=== PATIENT | female | born 1945 | race Caucasian/White ===

== ENCOUNTER 2018-03-03 05:40 | Day surgery (SDC) | payer MEDICARE, OTHER ==
[2018-03-03] VITALS (8 sets, daily range): BP systolic 123–152; BP diastolic 63–82
[~2018-03-03] VITALS: Ht 170.2 cm; Wt 81.6 kg
[2018-03-03] MEDS: Ciprofloxacin Opth Soln 2.5ml RIGHT EYE SCH ×4 (06:15→06:44)
[2018-03-03] MEDS: Akten 3.5% 1ml Btl RIGHT EYE SCH ×4 (06:15→06:44)
[2018-03-03] MEDS: Cyclopentolate 1% Opth Sol 2ml RIGHT EYE SCH ×4 (06:15→06:44)
[2018-03-03] MEDS: Phenylephrine 2.5% Op 2ml Soln RIGHT EYE SCH ×4 (06:16→06:44)
[2018-03-03] MEDS: Diclofenac Sod 0.1% Op Soln RIGHT EYE SCH ×4 (06:16→06:44)
[2018-03-03] MEDS ORDERED: ASPIR 8181 MG ORAL (06:49)
[2018-03-03] MEDS ORDERED: VITAMIN B122500 MCG PO (06:49)
[2018-03-03] MEDS ORDERED: AMLODIPINE BESYL5 MG ORAL (06:49)
[2018-03-03] MEDS ORDERED: MULTI-VITAMIN1 EACH PO (06:49)
[2018-03-03] MEDS ORDERED: HYDROCHLOROTH12.5 MG ORAL (06:49)
[2018-03-03] MEDS ORDERED: LISINOPRIL40 MG ORAL (06:49)
[2018-03-03] MEDS ORDERED: VITAMIN E400 UNI5 PO (06:49)
[2018-03-03] MEDS ORDERED: Lidocaine 1% MPF 10mg/ml 5ml ONE (07:01)
[2018-03-03] MEDS ORDERED: Pred Forte 1% Opth Susp 1ml ONE (07:01)
[2018-03-03] MEDS ORDERED: Carbachol 0.01% Op Soln 1.5ml vial ONE (07:01)
[2018-03-03] MEDS ORDERED: EPINEPHrine 1mg/1ml Amp ONE ×2 (07:01→07:23)
[2018-03-03] MEDS ORDERED: BSS 15ml BTL ONE ×2 (07:02→07:23)
[2018-03-03] MEDS ORDERED: Sodium Hyaluronate 14 mg/ml 0.85ml ONE (07:02)
[2018-03-03] MEDS ORDERED: Tetracaine 0.5% Opth 4ml Soln ONE (07:02)
[2018-03-03] MEDS ORDERED: BSS 500ml btl ONE (07:02)
[2018-03-03] MEDS ORDERED: Dexamethasone 4mg/ml vial ONE (07:02)
[2018-03-03] MEDS ORDERED: Lidocaine 1% 10mg/ml/Epi 0.005mg/ml 30ml vial INJ ONE (07:04)
[2018-03-03] MEDS ORDERED: Povidone-Iodine 5% opth solution ONE (07:04)
--- NOTE | 2018-03-03 07:05 | Pre-Procedure Note/Attestation ---
Pre-Procedure Note/Attestation Complete Prior to Procedure Planned Procedure: right Procedure Narrative: Cataract extraction with IOL Indications for Procedure Pre-Operative Diagnosis: Cataract Attestation I attest that I discussed the nature of the procedure; its benefits; risks and complications; and alternatives (and the risks and benefits of such alternatives ), prior to the procedure, with the patient (or the patient's legal bottling equipment sales representative). I attest that, if there was a reasonable possibility of needing a blood transfusion, the patient (or the patient's legal bottling equipment sales representative) was given the [facility] standardized written summary, pursuant to the [place] Blood Safety Act ([place] Health and Safety Code # 1645, as amended). I attest that I re-evaluated the patient just prior to the surgery and that there has been no change in the patient's H&P, except as documented below: Gagandeep Noyola MD Mar 03, 2018 07:05
[2018-03-03] MEDS ORDERED: fentaNYL 100 mcg/2 mL IV ONE (07:21)
[2018-03-03] MEDS ORDERED: Midazolam 2mg/2ml Inj ONE (07:21)
[2018-03-03] MEDS ORDERED: Propofol 200mg/20ml IV ONE (07:21)
[2018-03-03] MEDS ORDERED: Lidocaine 2% 20mg/ml/Epi 0.005mg/ml 20ml vial ONE (07:23)
[2018-03-03] MEDS ORDERED: Lidocaine 4% Amp ONE (07:23)
[2018-03-03] MEDS ORDERED: Sterile Water Irrig 1000ml IRRIG ONE (07:30)
[2018-03-03] MEDS ORDERED: NS Irrig 1000ml ONE (07:30)
[2018-03-03] MEDS ORDERED: LR 1000ml ONE (07:30)
--- NOTE | 2018-03-03 07:45 | Anethesia Preoperative Eval ---
Anesthesia Pre-op PMH/ROS General Date of Evaluation: Mar 03, 2018 Time of Evaluation: 07:20 Anesthesiologist: Shruti Graf CRNA ASA Score: ASA 2 Mallampati Score Class I : Soft palate, uvula, fauces, pillars visible Class II: Soft palate, uvula, fauces visible Class III: Soft palate, base of uvula visible Class IV: Only hard plate visible Mallampati Classification: Class II Surgeon: Jazmín Diagnosis: RGHT eye cataract Surgical Procedure: RIGHT eye cataract extraction IOL Anesthesia History: none Family History: no anesthesia problems Allergies: Coded Allergies: No Known Allergies (Unverified , 03/01/18) Medications: see eMAR Patient NPO?: Yes NPO Date: Mar 03, 2018 NPO Time: 00:00 Past Medical History Cardiovascular: Reports: HTN; Denies: CAD, ND, valve dz, arrhythmia, other Pulmonary: Denies: asthma, COPD, JOHN PAUL, other Gastrointestinal/Genitourinary: Denies: GERD, CRI, ESRD, other Neurologic/Psychiatric: Denies: dementia, CVA, depression/anxiety, TIA, other Endocrine: Denies: DM, hypothyroidism, steroids, other HEENT: Reports: cataract (L), cataract (R), ALTURAS (L), ALTURAS (R); Denies: glaucoma, other Hematology/Immune: Denies: anemia, DVT, bleeding disorder, other Musculoskeletal/Integumentary: Denies: OA, RA, DJD, DDD, edema, other Other: obesity, other - squamous cell CA nose PMH Narrative: as above PSxH Narrative: ADRIAN, ear surgery Anesthesia Pre-op Phys. Exam Physician Exam Last Vital Signs Date Time Temp Pulse Resp B/P (MAP) Pulse Ox O2 Delivery O2 Flow Rate FiO2 03/03/18 06:22 98.6 77 20 125/66 96 Room Air Constitutional: NAD Neurologic: CN 2-12 intact Cardiovascular: RRR Respiratory: CTA Airway Exam Mallampati Score: Class II MO: full Neck: no limitations TMD: > 3 FB ROM: full Dentures: no upper, no lower Anesthesia Pre-op A/P Studies Pre-op Studies: EKG - SR with LEFT fascicular block Risk Assessment & Plan Assessment: ASA 2, ok to proceed Plan: MAC Status Change Before Surgery: No Pre-Antibiotics Given Within 1 Hr of Incision: No Ebonie Grafy BUSINESS INFORMATION CONSULTANT Mar 03, 2018 07:45
--- NOTE | 2018-03-03 08:17 | Operative Note - PDOC ---
Operative Note Operative Note Date of Operation/Procedure: Mar 03, 2018 Chief Complaint: Poor vision Pre-op Diagnosis: Cataract Procedure: Cataract extraction with lens implant, right eye Post-op Diagnosis: Cataract Post-op Diagnosis: same as pre-op Surgeon: Gagandeep Noyola Leather Toggler: None Additional Surgeons: None Anesthesiologist: Lesia Anesthesia: MAC Specimen: none Complications: none Condition: stable Fluids: None Estimated Blood Loss: none Drains: none Packing: None Implant(s) used?: Yes Indications for Procedure Poor vision Description of Procedure See operative report Gagandeep Noyola MD Mar 03, 2018 08:17
--- NOTE | 2018-03-03 08:58 | Immediate Post-Op Evaluation ---
Immediate Post-Op Evalulation Immediate Post-Op Evalulation Procedure: RIGHT cataract extraction with IOL implant Date of Evaluation: Mar 03, 2018 Time of Evaluation: 08:11 IV Fluids: 300 ml LR Blood Pressure Systolic: 147 Blood Pressure Diastolic: 82 Pulse Rate: 81 Respiratory Rate: 14 O2 Sat by Pulse Oximetry: 99 Temperature (Fahrenheit): 97.0 Pain Score (1-10): 0 Nausea: No Vomiting: No Complications none Patient Status: awake, reacts, patent Hydration Status: adequate Given Within 1 Hr of Incision: Shruti Madrid CRNA Mar 03, 2018 08:58
--- NOTE | 2018-03-03 08:59 | 48 Hour Post Anesthesia Eval ---
Post Anesthesia Evaluation Procedure: RIGHT cataract extraction with IOL implant Date of Evaluation: Mar 03, 2018 Time of Evaluation: 08:45 Blood Pressure Systolic: 133 0: 76 Pulse Rate: 78 Respiratory Rate: 16 Temperature (Fahrenheit): 97.8 O2 Sat by Pulse Oximetry: 98 Airway: patent Nausea: No Vomiting: No Pain Intensity: 0 Hydration Status: adequate Cardiopulmonary Status: stable Mental Status/LOC: patient returned to baseline Follow-up Care/Observations: per opthamology Post-Anesthesia Complications: none Follow-up care needed: ready to discharge Shrtui Graf CRNA Mar 03, 2018 08:59
--- NOTE | 2018-03-03 19:45 | Operative Note - Dictated ---
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 PRINCIPAL PROCEDURE: Phacoemulsification with primary implantation of posterior chamber intraocular lens, right eye. SURGEON: Gagandeep Noyola M.D. SITE SUPERINTENDENT: None. ANESTHESIA: MAC by Shruti Dianna DESCRIPTION OF PROCEDURE: The patient was evaluated in my office complaining gradually decreasing vision in both eyes. She indicated that she always had the experience being able to read without glasses and glasses of a distance. More recently, she had more problems with both activities with and without correction. After discussing the risks, benefits, and alternatives, an informed consent was obtained to proceed with cataract extraction initially in the right eye. The postoperative refractive error was planned to be myopic to allow more independent at near. The patient was therefore brought to the [facility] where the right pupil was dilated and an intravenous line was started. She was brought into the operating room where the ocular anesthesia was obtained with topical drops supplemented with intravenous sedation. The right eye was then prepped and draped in the usual fashion for intraocular surgery. A clear corneal temporal incision was made in the anterior chamber filled with Shugarcaine and viscoelastic. A continuous tear capsulotomy was accomplished. Hydrodissection was utilized to facilitate phacoemulsification. A two-handed phacoemulsification technique was used to fracture the lens nucleus into quadrants and the segments removed in sequence. Irrigation/aspiration hand piece was used to remove all residual lens cortex and occitan the posterior capsule. Viscoelastic was introduced. An intraocular lens from [employer], model ZCB00 with a power of 23.5 diopters was folded into the lens insertion cartridge, injected into the posterior chamber of the eye and positioned within the capsular bag. The viscoelastic was removed. The wound was adjusted, made watertight without sutures. The intraocular pressure was adjusted to normal. One drop of 10% Betadine, one drop of prednisolone acetate, and one drop of Vigamox were placed on the eye. The eye was covered with an eye shield. This completed the procedure. All sponge and needle counts were correct. The patient was taken to the [facility] in good condition having tolerated the procedure well. Gagandeep Noyola M.D. DR: FDEERICA JOB#: [id number] CC: Eriberto Cardenas M.D.; Fax#: [phone]
== END 2018-03-03 09:35 | disposition home or self-care (01) ==
LOC: SUR 05:40
DX: H25.811 Combined forms of age-related cataract, right eye (principal); I10 Essential (primary) hypertension; E66.9 Obesity, unspecified; Z85.828 Personal history of other malignant neoplasm of skin; Z90.710 Acquired absence of both cervix and uterus
CPT/HCPCS: 66984; J0171; J1100; J2250; J3010; J3370; V2632; 94003; 94150